=== PATIENT | female | born 1945 | race Caucasian/White ===

== ENCOUNTER 2021-05-03 20:21 | Emergency (ER) | payer MEDICARE, SELFPAY ==
--- NOTE | ~2021-05-03 | CT_ITS ---
EXAMINATION: CT ABDOMEN AND PELVIS WITH CONTRAST CLINICAL INFORMATION: Abdominal pain. Vaginal bleeding. COMPARISON: None TECHNIQUE: Multidetector volumetric images were obtained from the superior aspect of the liver through the pubic symphysis following administration 85 mL of Omnipaque 350 intravenous contrast. Sagittal and coronal reformatted images were obtained on the technologist's workstation. Oral contrast: No This CT examination was performed using dose optimization techniques as appropriate, variously including the following: *Automated exposure control *Adjustment of mA and/or kV according to patient size (this includes techniques or standardized protocols for targeted exams where dose is matched to indication/reason for exam; i.e. extremities or head) *Use of iterative reconstruction technique DLP: 478 mGy-cm FINDINGS: LUNG BASES: The visualized lung bases are unremarkable. LIVER, GALLBLADDER, AND BILIARY TREE: The liver is normal in size, shape, and attenuation. No focal hepatic lesion or biliary ductal dilatation is present. The gallbladder is unremarkable with no evidence of radiopaque gallstones, gallbladder wall thickening, or obvious pericholecystic inflammatory changes. PANCREAS: Unremarkable. SPLEEN: Unremarkable. ADRENAL GLANDS: Unremarkable. KIDNEYS AND URETERS: The kidneys are normal in size, shape, and attenuation. No hydronephrosis or hydroureter. No definite calculi, as there appears to be related excretion of contrast bilaterally in the collecting systems. No perinephric stranding. Fat attenuation lesion at the upper pole of the right kidney measuring 1.4 cm likely represents an angiomyolipoma. BLADDER: Unremarkable. GASTROINTESTINAL TRACT: The small and large bowel are unremarkable. The appendix is unremarkable. ABDOMINAL WALL: No significant hernia is appreciated. LYMPH NODES: Normal. VASCULAR: Normal caliber aorta with mild to moderate atherosclerotic calcification. PELVIC VISCERA: Retroverted uterus. Abnormal endometrium. The endometrial canal is dilated to 1.7 cm . Internal heterogeneous attenuation with nodular enhancing appearance. OSSEOUS STRUCTURES: No acute or suspicious osseous abnormality. Degenerative changes throughout the spine. CT/CT abdomen pelvis w con IMPRESSION: Significant abnormality of the endometrium with abnormal thickening and heterogeneous internal nodular enhancement. This appearance raises concern for malignancy. No lymphadenopathy or peritoneal nodularity. Right renal angiomyolipoma. Fleischner guidelines were followed.
[2021-05-03 20:30] VITALS: BP 182/86; PULSE 93; RESP 20; TEMP 35.8; O2SAT 97; BMI 30.7
[2021-05-03 21:23] LABS: MANUAL DIFF FLAG NO
[2021-05-03 21:24] LABS: Basophils Absolute Auto 0.1 X10*3/uL (0.0-0.2); Basophils Percent Auto 0.6 % (0-2); Eosinophils Absolute Auto 0.1 X10*3/uL (0.0-0.4); Eosinophils Percent Auto 0.5 % (0-4); Hematocrit 49.9 % (37.0-47.0); Hemoglobin 16.3 g/dl (12.0-16.0); Imm Gran Abs Auto 0.04 X10*3/uL (0.00-0.03); Imm Gran Pct Auto 0.3 % (0.0-0.4); Lymphocytes Absolute Auto 1.1 X10*3/uL (1.2-4.9); Mean Corpuscular HGB Conc 32.7 g/dl (31.0-35.0); Mean Corpuscular Hemoglobin 30.1 pg (27.0-33.0); Mean Corpuscular Volume 92.2 fL (80.0-98.0); Mean Platelet Volume 10.8 fL (9.4-12.3); Monocytes Absolute Auto 0.5 X10*3/uL (0.1-1.2); Monocytes Percent Auto 4.2 % (2-11); Neutrophils Absolute Auto 10.5 x10*3/uL (2.0-8.3); Neutrophils Percent Auto 85.4 % (45-73); Platelet Count 266 X10*3/uL (160-400); Red Blood Count 5.41 X10*6/uL (4.20-5.50); Red Cell Distribution Width 12.8 % (11.0-16.0); White Blood Count 12.3 X10*3/uL (4.8-10.8)
[2021-05-03 21:39] LABS: COVID-19 Test Negative (Negative)
[2021-05-03 21:46] LABS: Alanine Aminotransferase 26 U/L (0-31); Albumin Level 4.4 g/dL (3.5-5.0); Alkaline Phosphatase 62 U/L (39-117); Anion Gap 17 (12-20); Aspartate Amino Transferase 28 U/L (5-31); Bilirubin Total 0.6 mg/dL (0.0-1.0); Blood Urea Nitrogen 13 mg/dL (9-16); Carbon Dioxide 26 mmol/L (22-29); Chloride 100 mmol/L (96-108); Creatinine Clr Calc Pharmacy 52.8; Estimated Glomerular Filt Rate > 60; Glucose Random 105 mg/dL (60-115); Potassium 3.4 mmol/L (3.3-5.1); Sodium 140 mmol/L (135-145); Total Protein 8.2 g/dL (6.5-8.0)
[2021-05-03 22:43] LABS: Appearance Urine HAZY; Color Urine YELLOW; Glucose Urine UA NEG (NEG); Leukocyte Esterase Urine NEG (NEG); Nitrite Urine NEG (NEG); Specific Gravity - Urine >= 1.030 (1.005-1.025); UACC Culture Trigger NO; Urine Blood 3+ (NEG); Urine Ketones 5 MG/DL (NEG); Urine Protein TRACE MG/DL (NEG-TRACE)
[2021-05-03 22:53] LABS: Bacteria Urine 1+ /LPF; Calcium Oxalate Crystals Urine 1+ /LPF; Mucus Urine 1+ /LPF; Squamous Epithelial Cell Urine 1+ /LPF
[2021-05-04 02:23] VITALS: BP 179/72; PULSE 90; RESP 16; TEMP 36.8; O2SAT 97
--- NOTE | 2021-05-04 02:31 | PC.NURSE ---
Given new pad at this time. First change since 183
[2021-05-04] MEDS: iohexoL 350 MG/ML 100 ML INFUS..BTL 85 ML IV (03:05)
--- NOTE | 2021-05-04 05:34 | ED.FEMALEGU ---
HPI - Female Genitourinary General Chief complaint: Vaginal Bleeding Stated complaint: Vaginal bleeding Time Seen by Provider: 05/04/21 02:31 Source: patient Mode of arrival: ambulatory Limitations: no limitations History of Present Illness HPI Narrative: 76-year-old female who presents emergency department for evaluation of vaginal bleeding. The patient states that yesterday at around 6:00 p.m. she noted vaginal bleeding. She describes the bleeding as looking like ? period blood ?. She states the she applied and OB pad and since the start of the bleeding she has only had to use three OB pads. She denies any abdominal pain. She denies lightheadedness, dizziness or weakness. She denied fever, chills or night sweats. She has not gained or lost any weight. Related Data Allergies Allergy/AdvReac Type Severity Reaction Status Date / Time Penicillins [PENICILLINS] Allergy Unknown UNKNOWN Unverified 01/03/20 16:03 Review of Systems Review of Systems: Yes all other systems are reviewed and are negative [facility] Past Medical History [facility] Narrative: Past surgical history: Bilateral tubal ligation. Social history: She denies tobacco use. She occasionally drinks alcohol. She denies drug use. Medical History HTN (hypertension) Hypothyroid Social History Social History Advance Directives: No Advance Directives Information Provided: Yes Physical Exam Vital Signs: Vital Signs: Last Vital Signs Temp 98.2 F 05/04/21 02:23 Pulse 90 05/04/21 02:23 Resp 16 05/04/21 02:23 BP 179/72 H 05/04/21 02:23 Pulse Ox 97 05/04/21 02:23 BMI result Body Mass Index 30.7 Const: General: cooperative and no acute distress Orientation/consciousness: oriented to person and oriented to place Limitations: no limitations HENMT: Head: Yes normal to inspection, Yes normocephalic and Yes atraumatic Ears: external ears normal General nose exam: Normal external nose present Face and sinus: Yes normal facial exam Mouth: Normal oral and palatal mucosa present Throat: Yes posterior oropharynx normal Eyes: General: appearance normal, both eyes and all related structures Pupils: Equal, round and reactive pupils present Neck: Neck: Yes normal visual inspection, Yes no lymphadenopathy, Yes trachea midline and Yes supple Chest: Chest palpation & inspection: normal inspection of the chest and normal palpation of entire chest wall Resp: Effort & Inspection: normal respiratory effort and able to speak in complete sentences Auscultation: clear to auscultation bilaterally Cardio: Rate: regular rate Rhythm: regular rhythm Heart sounds: S1 normal heart sound present, S2 normal heart sound present and no murmurs GI: Inspection: Yes normal to inspection Palpation (GI): Soft to palpation, nontender and no guarding Auscultation: normal bowel sounds : General: Yes no CVA tenderness Back/Spine/Pelvis: Back: no CVA tenderness Skin: General skin exam: no rashes or lesions noted Neuro: General: oriented to person and oriented to place Cranial nerves: Yes CN's II-XII intact bilaterally and Yes Equal, round and reactive pupils present Cognition (Neuro): normal cognition Motor exam (neuro): 5/5 motor strength present throughout Extrem: General: Yes normal to inspection Psych: Appearance: grossly normal Speech and movement: Normal speech and movement present Affect: normal affect Attitude: cooperative Thought process: Normal thought process present Thought content: Normal thought content present Course Course Course Narrative: 76-year-old female who presents emergency department for evaluation of sudden onset of vaginal bleeding that occurred yesterday at 6:00 p.m.. The patient is only used three OB pad since the onset of the bleeding. She denied any abdominal pain, lightheadedness dizziness. Vital signs were normal. Physical examination was unremarkable. The patient's laboratory evaluation revealed a normal H&H of [address] scan of the abdomen pelvis with IV contrast was interpreted by the radiologist as follows:Significant abnormality of the endometrium with abnormal thickening and heterogeneous internal nodular enhancement. This appearance raises concern for malignancy. No lymphadenopathy or peritoneal nodularity.? Right renal angiomyolipoma. I did discuss this finding with the patient and the need to follow-up with gynecology. Patient states she does not have a accounting auditor therefore she will be referred to our accounting auditor. She was advised to contact the office and make a follow-up appointment within 1-2 weeks. She was given printed instructions on dysfunctional uterine bleeding and discharged home. MDM - Female Genitourinary Lab Data Result diagrams: 05/03/21 20:56 05/03/21 20:56 Labs: Lab Results 05/03/21 05/03/21 05/03/21 Range/Units 20:56 20:56 20:56 WBC 12.3 H (4.8-10.8) X10*3/uL RBC 5.41 (4.20-5.50) X10*6/uL Hgb 16.3 H (12.0-16.0) g/dl Hct 49.9 H (37.0-47.0) % MCV 92.2 (80.0-98.0) fL MCH 30.1 (27.0-33.0) pg MCHC 32.7 (31.0-35.0) g/dl RDW 12.8 (11.0-16.0) % Plt Count 266 (160-400) X10*3/uL MPV 10.8 (9.4-12.3) fL Immature Gran % (Auto) 0.3 (0.0-0.4) % Neut % (Auto) 85.4 H (45-73) % Lymph % (Auto) 9.0 L (20-40) % [place] % (Auto) 4.2 (2-11) % Eos % (Auto) 0.5 (0-4) % Baso % (Auto) 0.6 (0-2) % Lymph # (Auto) 1.1 L (1.2-4.9) X10*3/uL [place] # (Auto) 0.5 (0.1-1.2) X10*3/uL Eos # (Auto) 0.1 (0.0-0.4) X10*3/uL Baso # (Auto) 0.1 (0.0-0.2) X10*3/uL Abs Immat Gran (auto) 0.04 H (0.00-0.03) X10*3/uL Absolute Neuts (auto) 10.5 H (2.0-8.3) x10*3/uL Absolute Nucleated RBC 0.000 (0.0-0.012) X10*3/uL Nucleated RBC % (auto) 0.0 (0.0-0.2) /100WBC Sodium 140 (135-145) mmol/L Potassium 3.4 (3.3-5.1) mmol/L Chloride 100 (96-108) mmol/L Carbon Dioxide 26 (22-29) mmol/L Anion Gap 17 (12-20) BUN 13 (9-16) mg/dL Creatinine 0.70 (0.5-1.4) mg/dL Estim Creat Clear Calc 52.8 Estimated GFR > 60 Random Glucose 105 (60-115) mg/dL Calcium 10.0 (8.4-10.2) mg/dL Total Bilirubin 0.6 (0.0-1.0) mg/dL AST 28 (5-31) U/L ALT 26 (0-31) U/L Alkaline Phosphatase 62 (39-117) U/L Total Protein 8.2 H (6.5-8.0) g/dL Albumin 4.4 (3.5-5.0) g/dL Urine Color Urine Appearance Urine pH (5.0-8.0) Ur Specific [place] (1.005-1.025) Urine Protein (NEG-TRACE) MG/DL Urine Glucose (UA) (NEG) MG/DL Urine Ketones (NEG) MG/DL Urine Blood (NEG) Urine Nitrite (NEG) Ur Leukocyte Esterase (NEG) Urine RBC (0) /HPF Urine WBC (0-4) /HPF Ur Squamous Epith Cells /LPF Calcium Oxalate Crystal /LPF Urine Bacteria /LPF Urine Mucus /LPF COVID-19 ([facility]) Negative (Negative) COVID-19 Clin Com See Note 05/03/21 Range/Units 21:23 WBC (4.8-10.8) X10*3/uL RBC (4.20-5.50) X10*6/uL Hgb (12.0-16.0) g/dl Hct (37.0-47.0) % MCV (80.0-98.0) fL MCH (27.0-33.0) pg MCHC (31.0-35.0) g/dl RDW (11.0-16.0) % Plt Count (160-400) X10*3/uL MPV (9.4-12.3) fL Immature Gran % (Auto) (0.0-0.4) % Neut % (Auto) (45-73) % Lymph % (Auto) (20-40) % [place] % (Auto) (2-11) % Eos % (Auto) (0-4) % Baso % (Auto) (0-2) % Lymph # (Auto) (1.2-4.9) X10*3/uL [place] # (Auto) (0.1-1.2) X10*3/uL Eos # (Auto) (0.0-0.4) X10*3/uL Baso # (Auto) (0.0-0.2) X10*3/uL Abs Immat Gran (auto) (0.00-0.03) X10*3/uL Absolute Neuts (auto) (2.0-8.3) x10*3/uL Absolute Nucleated RBC (0.0-0.012) X10*3/uL Nucleated RBC % (auto) (0.0-0.2) /100WBC Sodium (135-145) mmol/L Potassium (3.3-5.1) mmol/L Chloride (96-108) mmol/L Carbon Dioxide (22-29) mmol/L Anion Gap (12-20) BUN (9-16) mg/dL Creatinine (0.5-1.4) mg/dL Estim Creat Clear Calc Estimated GFR Random Glucose (60-115) mg/dL Calcium (8.4-10.2) mg/dL Total Bilirubin (0.0-1.0) mg/dL AST (5-31) U/L ALT (0-31) U/L Alkaline Phosphatase (39-117) U/L Total Protein (6.5-8.0) g/dL Albumin (3.5-5.0) g/dL Urine Color YELLOW Urine Appearance HAZY Urine pH 6.0 (5.0-8.0) Ur Specific [place] >= 1.030 H (1.005-1.025) Urine Protein TRACE (NEG-TRACE) MG/DL Urine Glucose (UA) NEG (NEG) MG/DL Urine Ketones 5 (NEG) MG/DL Urine Blood 3+ H (NEG) Urine Nitrite NEG (NEG) Ur Leukocyte Esterase NEG (NEG) Urine RBC 76-150 H (0) /HPF Urine WBC 1-4 (0-4) /HPF Ur Squamous Epith Cells 1+ /LPF Calcium Oxalate Crystal 1+ /LPF Urine Bacteria 1+ /LPF Urine Mucus 1+ /LPF COVID-19 ([facility]) (Negative) COVID-19 Clin Com Discharge Plan Discharge Clinical Impression: Dysfunctional uterine bleeding, Thickened endometrium Patient Disposition: Home, Self-Care Instructions: Dysfunctional Uterine Bleeding (ED) Additional Instructions: Your red blood cell count was normal, you do not have anemia which is reassuring. The rest of your blood work was normal. The CT scan of your abdomen pelvis with IV contrast revealed that you have endometrial thickening (the endometrium is the inside of the uterus). This can sometimes be caused by cancer of the uterus. You will need to follow-up with our accounting auditor to determine what other tests you will need to further figure out the cause of your vaginal bleeding. Continue to use OB pad. If your soaking through more than 1 or 2 per hour, if he feel lightheaded dizzy or if your symptoms get worse in any other way you should follow-up with a accounting auditor return to the emergency department. Call the accounting auditor's office tomorrow to try to make a follow-up appointment within 1-2 weeks. Let the office know that you were here in the emergency department and that we are concerned that you might have endometrial cancer causing her bleeding. Please return to the emergency department if your symptoms get worse or if you develop any symptoms that are concerning to you. Referrals: Moncho Munson MD [Physician] - 1 week
== END 2021-05-04 06:50 | disposition home or self-care (01) ==
PROVIDERS: Emergency Provider Emergency Medicine Emergency Medical Services; PCP Advanced Practice Midwife
DX: N93.9 Abnormal uterine and vaginal bleeding, unspecified (principal); R93.89 Abnormal findings on diagnostic imaging of other specified body structures; Z20.822 Contact with and (suspected) exposure to COVID-19; I10 Essential (primary) hypertension
CPT/HCPCS: 36415; 74177; 80053; 81001; 85025; 87635; 99284; Q9967

== ENCOUNTER 2022-01-09 21:18 | Emergency (ER) | payer MEDICARE, SELFPAY ==
[2022-01-09 21:53] VITALS: BP 168/89; PULSE 88; RESP 18; TEMP 36.3; O2SAT 99; BMI 27.3
[2022-01-10 01:41] VITALS: BP 177/83; PULSE 80; RESP 16; TEMP 36.3; O2SAT 98
[2022-01-10 01:56] LABS: MANUAL DIFF FLAG NO
[2022-01-10 01:57] LABS: Basophils Absolute Auto 0.1 X10*3/uL (0.0-0.2); Basophils Percent Auto 0.9 % (0-2); Eosinophils Absolute Auto 0.1 X10*3/uL (0.0-0.4); Hematocrit 48.7 % (37.0-47.0); Imm Gran Abs Auto 0.02 X10*3/uL (0.00-0.03); Imm Gran Pct Auto 0.2 % (0.0-0.4); Lymphocytes Absolute Auto 2.3 X10*3/uL (1.2-4.9); Lymphocytes Percent Auto 26.3 % (20-40); Mean Corpuscular HGB Conc 32.9 g/dl (31.0-35.0); Mean Corpuscular Hemoglobin 29.7 pg (27.0-33.0); Mean Corpuscular Volume 90.4 fL (80.0-98.0); Mean Platelet Volume 9.9 fL (9.4-12.3); Monocytes Absolute Auto 0.7 X10*3/uL (0.1-1.2); Monocytes Percent Auto 8.3 % (2-11); Neutrophils Absolute Auto 5.6 x10*3/uL (2.0-8.3); Neutrophils Percent Auto 63.3 % (45-73); Platelet Count 347 X10*3/uL (160-400); Red Blood Count 5.39 X10*6/uL (4.20-5.50); Red Cell Distribution Width 13.2 % (11.0-16.0); White Blood Count 8.9 X10*3/uL (4.8-10.8)
[2022-01-10 02:17] LABS: Alanine Aminotransferase 21 U/L (0-31); Albumin Level 4.5 g/dL (3.5-5.0); Alkaline Phosphatase 68 U/L (39-117); Anion Gap 18 (12-20); Aspartate Amino Transferase 20 U/L (5-31); Bilirubin Total 0.8 mg/dL (0.0-1.0); Blood Urea Nitrogen 10 mg/dL (9-16); Calcium 10.1 mg/dL (8.4-10.2); Carbon Dioxide 27 mmol/L (22-29); Chloride 102 mmol/L (96-108); Creatinine Clr Calc Pharmacy 55.3; Estimated Glomerular Filt Rate > 60; Glucose Random 115 mg/dL (60-115); Potassium 4.1 mmol/L (3.3-5.1); Sodium 143 mmol/L (135-145); Total Protein 7.7 g/dL (6.5-8.0)
[2022-01-10 02:19] LABS: Appearance Urine Clear; Color Urine Yellow; Glucose Urine UA Negative (Negative); Leukocyte Esterase Urine Small (1+) (Negative); Nitrite Urine Negative (Negative); UMIC TRIGGER UACC YES; Urine Blood Negative (Negative); Urine Ketones 15 mg/dL (Negative); Urine Protein Negative (Neg-Trace)
[2022-01-10 02:31] LABS: Bacteria Urine None Seen (None Seen); Hyaline Casts Urine 0-2 /LPF (0-2); RBC Urine 0-2 /HPF (0-2); Squamous Epithelial Cell Urine 0-2 /HPF (0-2); UACC Culture Trigger YES; WBC Urine 0-5 /HPF (0-5)
== END 2022-01-10 06:47 | disposition left against medical advice (07) ==
PROVIDERS: Emergency Provider Emergency Medicine; PCP Advanced Practice Midwife
DX: R10.12 Left upper quadrant pain (principal); I10 Essential (primary) hypertension
CPT/HCPCS: 36415; 80053; 81001; 85025; 87086; 99282; 99283

== ENCOUNTER 2025-03-09 04:57 | Emergency (ER) | payer MEDICARE, SELFPAY ==
--- OUTSIDE RECORDS SUMMARY | 2025-03-08 09:00 | XMS_ITS | Encounter Summary ---
Author Organization [facility] Address [address] [place] [address] Care Team Providers Care Chief Embalmer Name Role Phone Ceci Martin MD Primary Care Provider Reason for Visit * Reason Comments Diarrhea Encounter Details Date Type Department Care Team (Late st Contact Info) Description 03/08/2025 9:00 AM EST Office Visit Adult Medicine [address] [phone] Uyen Bush PA [address] [place], [place] Diarrhea, unspecified type (Primary Dx) Social History Tobacco Use Types Packs/Day Years Used Date Smoking Tobacco: Former Cigarettes 0.3 14.2 1 04/23/1957 - 04/18/1972 Smokeless Tobacco: Never Tobacco Cessation:Counseling Given: Not Answered Alcohol Use Standard Drinks/Week Comments Yes 0 (1 standard drink = 0.6 oz pur e alcohol) Housing Instability Answer Date Recorde d Are you worried that in the next 2 months you may not have stable housing? No 02/15/2025 Food Access & Nutrition Answer Date Rec orded Do you have access to a vari ety of food including fruits and vegetables? Yes 02/15/2025 Access to Healthcare Answer Date Record ed Within the last 3 months, vahe romero many times did you visit the emergency department for your medical care? 0 02/15/2025 Health Literacy Answer Date Recorded How often do you need to hav e someone help you when you read instructions, pamphlets, or other written material from your doctor or pharmacy? Never 02/15/2025 Caregiver: How often do you need to have someone help you when you read instructions, pamphlets, or other written material from your doctor or pharmacy? Not on file 02/15/2025 Financial Risk Answer Date Recorded How hard is it for you to pa y for the very basics like food, housing, medical care, and air conditioning / heating? Not very hard 02/15/2025 Transportation Answer Date Recorded Has the lack of transportati on kept you from meetings, work, or from getting things needed for daily living? No Has the lack of transportati on kept you from medical appointments or from getting medications? No 02/15/2025 Social Isolation Answer Date Recorded How often do you feel lonely or isolated from th ose around you? Never 02/15/2025 Food Risk Answer Date Recorded Within the past 12 months we worried whether our food would run out before we got money to buy more. Never true 02/15/2025 Within the past 12 months th e food we bought just didn't last and we didn't have money to get more. Never true 02/15/2025 Dependent Care Answer Date Recorded Do you need help finding or paying for care for your loved ones. For example, child support case officer or elderly care for an older adult? No 02/15/2025 Education Answer Date Recorded Do you think completing more education or training, like finishing a GED, going to college, or learning a trade, would be helpful for you? No 02/15/2025 Employment and Income Answer Date Recor ded During the last four weeks, have you been actively looking for work? No 02/15/2025 Living Situation Answer Date Recorded What is your living situation? Unrecognized valu e 02/15/2025 Comments No Sex and Gender Information Value Date Recorded Sex Assigned at Not on file Legal Sex Female 3:40 PM EST Gender Identity Not on file Sexual Orientation Not on file documented as of this encounter Last Filed Vital Signs Vital Sign Reading Time Taken Comments Blood Pressure 118/60 03/08/2025 8:37 AM EST Pulse 96 03/08/2025 8:37 AM EST Temperature 36.4 C (97.6 F) 03/08/2025 8:37 AM EST Respiratory Rate 16 03/08/2025 8:37 AM EST Oxygen Saturation 97% 03/08/2025 8:37 AM EST Inhaled Oxygen Concentration - - Weight 59.9 kg (132 lb) 03/08/2025 8:37 AM EST Height 152.4 cm (5') 03/08/2025 8:37 AM EST Body Mass Index 25.78 03/08/2025 8:37 AM EST documented in this encounter Patient Instructions * Attachments The following attachments cannot be sent through Care Everywhere. * Diarrhea (Albanian) documented in this encounter Progress Notes * CLAYTON Silva - 03/08/2025 9:00 AM EST CHIEF COMPLAINT: Diarrhea IDENTIFIER: Blanka Lui is a 80 y.o. old female. HPI: 80-year-old female with memory impairment presenting to office (with her ) for evaluation. Vast majority of history is obtained from . Has reports patient began experiencing episodes of loose stool about a week ago; states he spoke with triage nurse and was referred to urgent care, but [facility] urgent care facility does not deal withthat there. He states he originally started BRAT diet, Imodium, Pepto-Bismol, but has since discontinued these and reports patient resumed normal diet. He states she wakes at about 3AM with fecal urgency and she describes abdominal cramping with urgency, usually has about 2 more episodes at 4 and 5 AM which does not continue throughout the day. Has been states she has not had any medications in the past 2 days for symptoms. Denies fever, shaking chills, overt abdominal pain, nausea, vomiting, blood per rectum, or melena. Denies known ill contacts, drinking from unsafe water sources, international travel, recent antibiotic use. Patient reports history of similar symptoms 50 years ago but states she does not recall diagnosis or treatment. 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 Osteopenia 01/29/2013 GERD (gastroesophageal reflux disease) 07/05/2012 Allergic rhinitis 08/25/2010 Diffuse cystic mastopathy 09/09/2005 Hypothyroidism 09/09/2005 Overweight (BMI 25.0-29.9) 09/09/2005 Pure hypercholesterolemia 09/09/2005 Surgical History[1] SOCIAL HISTORY: Social History Tobacco Use Smoking status: Former Current packs/day: 0.00 Average packs/day: 0.3 packs/day for 14.2 years (4.2 ttl pk-yrs) Types: Cigarettes Start date: 1958 Quit date: 04/18/1972 Years since quittin.9 Smokeless tobacco: Never Substance Use Topics Alcohol use: Yes FAMILY HISTORY: Family History[2] Family Status Relation Name Status Mother at age 95 Father at age 72 Sister (Not Specified) Brother at age 49 Brother (Not Specified) Neg Hx (Not Specified) MGM [place] MGF UK PGM [place] PGF [place] No partnership data on file MEDICATIONS DISCONTINUED/REORDERED: There are no discontinued medications. ACTIVE MEDICATIONS: Medications Taking[3] ALLERGIES: Allergies[4] PHYSICAL EXAM: Visit Vitals BP 118/60 Pulse 96 Temp 36.4 ??C (97.6 ??F) (Temporal) Resp 16 Ht 1.524 m (60 ) Wt 59.9 kg (132 lb) SpO2 97% BMI 25.78 kg/m?? OB Status Hysterectomy Smoking Status Former BSA 1.56 m?? Wt Readings from Last 5 Encounters: 03/08/25 59.9 kg (132 lb) 02/15/25 61.2 kg (135 lb) 07/30/24 60.4 kg (133 lb 1.6 oz) 04/03/24 63 kg (139 lb) 02/14/24 62.3 kg (137 lb 6.4 oz) BMI is greater than 25.0 (above the normal range) - see Plan APPEARANCE: Alert and in no acute distress EYES: Sclerae anicteric HEART: RRR with normal S1 and S2, no murmurs, no gallops LUNG: Bilateral lung hu clear to auscultation throughout ABDOMEN: Soft, nontender, tympanitic to percussion, normoactive bowel sounds noted throughout all four quadrants, no hepatosplenomegaly, palpable masses, or bruits noted upon auscultation. LABS: Orders Placed This Encounter Procedures Ova and parasite examination Giardia antigen Clostridium difficile toxin Sedimentation rate Comprehensive metabolic panel CBC and differential IMAGING: None IMPRESSION: 1. Diarrhea, unspecified type PLAN: Ordered labs and stool testing as noted above; abdominal exam is reassuring. Advised to begin dailyprobiotic (or Activa yogurt) and resume BRAT diet. We did discuss signs and symptoms which needs miguel reevaluated including: fever, shaking chills, abdominal pain, vomiting, blood per rectum, or melena. Follow-up as needed. Medication and lab orders: Orders Placed This Encounter Procedures Ova and parasite examination Giardia antigen Clostridium difficile toxin Sedimentation rate Comprehensive metabolic panel CBC and differential Other orders: None CLAYTON Silva on 03/08/2025 at 9:04 AM EST [id number] is applicable to this visit as the primary care provider (PCP) office dealing with list the conditions noted/billed above are complex requiring extensive management/work up associated with longitudinal care of this patient. This patient???s serious/complex conditions may also require several consultants needing management/coordination through PCP office. This chart was generated by the [employer] EMR system and [employer] speech recognition software and may contain inherent errors or omissions not intended by the user. Grammatical errors, random word insertions, deletions, pronoun errors and incomplete sentences are occasional consequences of this technologydue to software limitations. Not all errors are caught or corrected. If there are questions or concerns about the content of this note or information contained within the body of this dictation they should be addressed directly with the author for clarification. [1] Past Surgical History: Procedure Laterality Date BREAST SURGERY : rt lumpectomy neg yrs ago COLONOSCOPY 05/2005 : Normal COLONOSCOPY 02/11/2021 diverticulosis COLONOSCOPY W/ POLYPECTOMY 04/29/2016 adenomas; repeat in 3 yrs ESOPHAGOGASTRODUODENOSCOPY 10/23/2012 normal ESOPHAGOGASTRODUODENOSCOPY 04/06/2017 : normal HYSTERECTOMY OTHER SURGICAL HISTORY 05/2003 ORIF fibula fracture TONSILLECTOMY TUBAL LIGATION [2] Family History Problem Relation Name Age of Onset Heart failure Mother ; CABG, dementia Heart failure Father ; OR Hyperlipidemia Sister Heart attack Brother Heart failure Brother hypertension Ovarian cancer Neg Hx Breast cancer Neg Hx Colon cancer Neg Hx Uterine cancer Neg Hx [3] Outpatient Medications Marked as Taking for the 03/08/25 encounter (Office Visit) with CLAYTON Silva Medication Sig Dispense Refill aspirin 81 mg EC tablet 1 TABLET DAILY calcium carbonate/vitamin D3 (CALCIUM 500 + D ORAL) Take by mouth 1 (one) time each day. chlorthalidone (HYGROTON) 25 mg tablet TAKE 1 TABLET BY MOUTH EVERY DAY 90 tablet 1 cholecalciferol (VITAMIN D-3) 50 mcg (2,000 unit) tablet Take 1 tablet (2,000 Units total) by mouth1 (one) time each day. 90 tablet 1 levothyroxine (SYNTHROID, LEVOTHROID) 88 mcg tablet TAKE 1 TABLET (88 MCG TOTAL) BY MOUTH EVERY DAYBEFORE BREAKFAST 90 tablet 0 lisinopriL (PRINIVIL,ZESTRIL) 20 mg tablet TAKE 1 TABLET BY MOUTH EVERY DAY 90 tablet 1 loperamide (IMODIUM A-D) 2 mg tablet Take 1 tablet (2 mg total) by mouth 4 (four) times a day if needed for diarrhea. multivitamin (MULTIPLE VITAMINS ORAL) 1 tab qd simvastatin (ZOCOR) 40 mg tablet TAKE 1 TABLET BY MOUTH EVERYDAY AT BEDTIME 90 tablet 1 [4] Allergies Allergen Reactions Penicillins Swelling documented in this encounter Plan of Treatment Upcoming Encounters Date Type Department Care Team (Late st Contact Info) Description 08/14/2025 8:45 AM EDT Office Visit Adult Medicine [address] [phone] Ceci Martin MD [address] [place] [address] Scheduled Orders Name Type Priority Associated Diagnoses Orde r Schedule Ova and parasite examination Microbiology Routine Diarrhea, unspecified type 3 Occurrences starting 03/08/2025 until 04/07/2025 Giardia antigen Microbiology Routine Diarrhea, unspecified type 1 Occurrences starting 03/08/2025 until 09/05/2025 Clostridium difficile toxin Microbiology Routine Diarrhea, unspecified type 1 Occurrences starting 03/08/2025 until 09/05/2025 documented as of this encounter Results * (ABNORMAL) Comprehensive metabolic panel (03/08/2025 9:28 AM EST) Sodium 137 133 - 145 mmol/L 03/08/2025 1:19 PM [facility] Potassium 3.7 3.5 - 5.5 mmol/L 03/08/2025 1:19 PM [facility] Chloride 97 96 - 110 mmol/L 03/08/2025 1:19 PM [facility] CO2 30 21 - 32 mmol/L 03/08/2025 1:19 PM [facility] Anion Gap 10 3 - 11 03/08/2025 1:19 PM [facility] Glucose 149(H) 70 - 100 mg/dL 03/08/2025 1:19 PM [facility] BUN 22 5 - 25 mg/dL 03/08/2025 1:19 PM [facility] Creatinine 1.27(H) 0.50 - 1.10 mg/dL 03/08/2025 1:19 PM [facility] eGFR 43(L) >=60 mL/min/1. 73m2 03/08/2025 1:19 PM [facility] Comment:Calculation based on the Chronic Kidney Disease Epidemiology Collaboration (CKD-EPI) equation refit without adjustment for race. BUN/Creatinine Ratio 17.3 03/08/2025 1:19 PM [facility] Calcium 8.7 8.5 - 10.5 mg/dL 03/08/2025 1:19 PM [facility] AST (SGOT) 14 10 - 42 unit/L 03/08/2025 1:19 PM [facility] ALT (SGPT) 14 10 - 60 unit/L 03/08/2025 1:19 PM [facility] Alkaline Phosphatase 67 42 - 121 unit/L 03/08/2025 1:19 PM [facility] Total Protein 7.0 6.0 - 8.0 g/dL 03/08/2025 1:19 PM [facility] Albumin 3.9 3.2 - 5.0 g/dL 03/08/2025 1:19 PM [facility] Total Bilirubin 0.5 0.0 - 1.4 mg/dL 03/08/2025 1:19 PM [facility] Blood Venous blood specimen / Unknown Venipuncture / Unknown 03/08/2025 9:28 AM EST 03/08/2025 9:28 AM EST us Uyen ARNOLD LAB BLOOD ORDERABLES Final Re sult [facility] [address] [place] [address], [place] [phone] * Sedimentation rate (03/08/2025 9:28 AM EST) Sed Rate 14 0 - 30 mm/hr LAB HEMETOLOGY METHOD 03/08/2025 12:24 PM [facility] Blood Venous blood specimen / Unknown Venipuncture / Unknown 03/08/2025 9:28 AM EST 03/08/2025 9:28 AM EST us Uyen ARNOLD LAB BLOOD ORDERABLES Final Re sult [facility] [address] [place] [address], [place] [phone] documented in this encounter Visit Diagnoses Diagnosis Diarrhea, unspecified type- Primary documented in this encounter Historical Medications * This list may reflect changes made after this encounter. loperamide (IMODIUM A-D) 2 mg tablet Take 1 tablet (2 mg total) by mouth 4 (four) times a day if needed for diarrhea. calcium carbonate/vitamin D3 (CALCIUM 500 + D ORAL) Take by mouth 1 (one) time each day. added in this encounter Additional Health Concerns Assessment Noted Time PHQ-9 Depression Total Score: 0 02/16/20 9:44 AM EDT A fall risk assessment has been complete d for the patient 02/15/2025 10:01 AM EDT documented as of this encounter Care Teams Chief Embalmer Relationship Specialty Start Date End Date Ceci Martin MD [address] [place] [address] PCP - General Internal Medicine 06/12/20 documented as of this encounter
--- OUTSIDE RECORDS SUMMARY | 2025-03-08 09:30 | XMS_ITS | Encounter Summary ---
Author Organization [facility] [place] [address] Care Team Providers Care Material Cutter Name Role Phone Ceci Martin MD Primary Care Provider [phone] Encounter Details Date Type Department Care Team (Late st Contact Info) Description 03/08/2025 9:30 AM EST Lab Draw Station - [address] [phone] Diarrhea, unspecified type Social History Tobacco Use Types Packs/Day Years Used Date Smoking Tobacco: Former Cigarettes 0.3 14.2 1 04/23/1957 - 04/18/1972 Smokeless Tobacco: Never Alcohol Use Standard Drinks/Week Comments Yes 0 [...] Record ed Within the last 3 months, ho w many times did you visit the emergency [...] for your loved ones. For example, child watch attendant or elderly care for an older adult? [...] on file documented as of this encounter Plan of Treatment Upcoming Encounters Date Type Department Care Team (Late st Contact Info) Description 08/14/2025 8:45 AM EDT Office Visit Adult Medicine [facility] [address] [place], [place] [phone] Ceci Martin MD [address] [place], [place] [phone] (work) documented as of this encounter Procedures Procedure Name Priority Date/Time Associated Diagnosis Comments CBC WITH AUTO DIFFERENTIAL Routine 03/08/2025 9:28 AM EST Diarrhea, unspecified type SEDIMENTATION RATE Routine 03/08/2025 9: 28 AM EST Diarrhea, unspecified type CBC AND DIFFERENTIAL Routine 03/08/2025 9:28 AM EST Diarrhea, unspecified type COMPREHENSIVE METABOLIC PANEL Routine 03/08/2025 9:28 AM EST Diarrhea, unspecified type documented in this encounter Results * (ABNORMAL) CBC auto differential (03/08/2025 9:28 AM EST) WBC 10.3 4.8 - 10.8 K/mcL LAB HEMETOLOGY METHOD 03/08/2025 12:19 PM [facility] RBC 4.70 3.80 - 4.80 M/mcL LAB HEMETOLOGY METHOD 03/08/2025 12:19 PM [facility] Hemoglobin 14.2 11.5 - 16.0 g/dL LAB HEMETOLOGY METHOD 03/08/2025 12:19 PM [facility] Hematocrit 43.2 35.0 - 47.0 % LAB HEMETOLOGY METHOD 03/08/2025 12:19 PM [facility] MCV 92.3 79.0 - 98.0 FL LAB HEMETOLOGY METHOD 03/08/2025 12:19 PM [facility] MCH 30.3 27.0 - 32.0 pcg LAB HEMETOLOGY METHOD 03/08/2025 12:19 PM [facility] MCHC 32.9 32.0 - 37.0 g/dL LAB HEMETOLOGY METHOD 03/08/2025 12:19 PM [facility] RDW 12.3 11.0 - 15.0 % LAB HEMETOLOGY METHOD 03/08/2025 12:19 PM [facility] Platelets 413(H) 130 - 400 K/mcL LAB HEMETOLOGY METHOD 03/08/2025 12:19 PM [facility] MPV 9.9 7.0 - 11.0 FL LAB HEMETOLOGY METHOD 03/08/2025 12:19 PM [facility] NRBC 0.0 <1.0 % LAB HEMETOLOGY METHOD 03/08/2025 12:19 PM [facility] NRBC Absolute 0.00 <0.10 K/mcL LAB HEMETOLOGY METHOD 03/08/2025 12:19 PM [facility] Neutrophils Relative 86.3 % LAB HEMETOLOGY METHOD 03/08/2025 12:19 PM [facility] Lymphocytes Relative 7.2 % LAB HEMETOLOGY METHOD 03/08/2025 12:19 PM [facility] Monocytes Relative 5.0 % LAB HEMETOLOGY METHOD 03/08/2025 12:19 PM [facility] Eosinophils Relative 0.3 % LAB HEMETOLOGY METHOD 03/08/2025 12:19 PM [facility] Basophils Relative 0.9 % LAB HEMETOLOGY METHOD 03/08/2025 12:19 PM [facility] Immature Granulocytes Relative 0.3 % LAB HEMETOLOGY METHOD 03/08/2025 12:19 PM [facility] Neutrophils Absolute 8.85(H) 1.50 - 7.00 K/mcL LAB HEMETOLOGY METHOD 03/08/2025 12:19 PM [facility] Lymphocytes Absolute 0.74(L) 1.00 - 5.00 K/mcL LAB HEMETOLOGY METHOD 03/08/2025 12:19 PM [facility] Monocytes Absolute 0.51 0.20 - 1.00 K/mcL LAB HEMETOLOGY METHOD 03/08/2025 12:19 PM EST [facility] Eosinophils Absolute 0.03 0.00 - 0.50 K/[facility] HEMETOLOGY METHOD 03/08/2025 12:19 PM EST [facility] Basophils Absolute 0.09 0.00 - 0.20 K/[facility] HEMETOLOGY METHOD 03/08/2025 12:19 PM EST [facility] Immature Granulocytes Absolute 0.03 0.00 - 0.03 K/[facility] HEMETOLOGY METHOD 03/08/2025 12:19 PM EST [facility] Blood Venous blood specimen / Unknown Venipuncture / Unknown 03/08/2025 9:28 AM EST 03/08/2025 9:28 AM EST us Uyen ARNOLD LAB BLOOD ORDERABLES Final Re sult Performing Organization Address City/[facility]/ZIP Co de Phone Number [facility] [address] [place] [address], [place] [phone] * Sedimentation rate (03/08/2025 9:28 AM EST) Sed Rate 14 0 - 30 mm/hr LAB HEMETOLOGY METHOD 03/08/2025 12:24 PM EST [facility] Blood Venous blood specimen / Unknown Venipuncture / Unknown 03/08/2025 9:28 AM EST 03/08/2025 9:28 AM EST us Uyen ARNOLD LAB BLOOD ORDERABLES Final Re sult [facility] [address] [place] [address], [place] [phone] * (ABNORMAL) Comprehensive metabolic panel (03/08/2025 9:28 AM EST) Sodium 137 133 - 145 mmol/L 03/08/2025 1:19 PM EST [facility] Potassium 3.7 3.5 - 5.5 mmol/L 03/08/2025 1:19 PM [facility] Chloride 97 96 - 110 mmol/L 03/08/2025 1:19 PM [facility] CO2 30 21 - 32 mmol/L 03/08/2025 1:19 PM [facility] Anion Gap 10 3 - 11 03/08/2025 1:19 PM [facility] Glucose 149(H) 70 - 100 mg/dL 03/08/2025 1:19 PM [facility] BUN 22 5 - 25 mg/dL 03/08/2025 1:19 PM [facility] Creatinine 1.27(H) 0.50 - 1.10 mg/dL 03/08/2025 1:19 PM [facility] eGFR 43(L) >=60 mL/min/1. 73m2 03/08/2025 1:19 PM [facility] Comment:Calculation based on the Chronic Kidney Disease Epidemiology Collaboration (CKD-EPI) equation refit without adjustment for race. BUN/Creatinine Ratio 17.3 03/08/2025 1:19 PM [facility] Calcium 8.7 8.5 - 10.5 mg/dL 03/08/2025 1:19 PM [facility] AST (SGOT) 14 10 - 42 unit/L 03/08/2025 1:19 PM [facility] ALT (SGPT) 14 10 - 60 unit/L 03/08/2025 1:19 PM [facility] Alkaline Phosphatase 67 42 - 121 unit/L 03/08/2025 1:19 PM [facility] Total Protein 7.0 6.0 - 8.0 g/dL 03/08/2025 1:19 PM [facility] Albumin 3.9 3.2 - 5.0 g/dL 03/08/2025 1:19 PM EST [facility] Total Bilirubin 0.5 0.0 - 1.4 mg/dL 03/08/2025 1:19 PM EST [facility] Blood Venous blood specimen / Unknown Venipuncture / Unknown 03/08/2025 9:28 AM EST 03/08/2025 9:28 AM EST us Uyen ARNOLD LAB BLOOD ORDERABLES Final Re sult [facility] [address] [place] [address], documented in this encounter Visit Diagnoses Diagnosis Diarrhea, unspecified type documented in this encounter Additional Health Concerns Assessment Noted Time PHQ-9 Depression Total Score: 0 02/16/20 9:44 AM EDT A fall risk assessment has been complete d for the patient 02/15/2025 10:01 AM EDT documented as of this encounter Care Teams Material Cutter Relationship Specialty Start Date End Date Ceci Martin MD [address] [place] [address] PCP - General Internal Medicine 06/12/20 documented as of this encounter
[2025-03-09 05:05] VITALS: BP 109/55; PULSE 65; RESP 14; TEMP 36.7; O2SAT 95; BMI 25.6
--- OUTSIDE RECORDS SUMMARY | 2025-03-09 05:23 | XMS_ITS | Encounter Summary ---
Author Organization [facility] [place] [address] Care Team Providers Care Chief Bank Examiner Name Role Phone Ceci Martin MD Primary Care Provider [phone] Encounter Details Date Type Department Care Team (Late st Contact Info) Description 02/19/2025 Results Follow-Up Adult Medicine [address] [phone] Uyen Bush PA [address] [place], [place] Social History Tobacco Use Types Packs/Day Years [...] for your loved ones. For example, child care nurse or elderly care for an older adult? [...] 8:45 AM EDT Office Visit Adult Medicine [address] [phone] Ceci Martin MD [address] [place], [place] documented as of this encounter Visit Diagnoses Not on filedocumented in this encounter Additional Health Concerns Assessment Noted Time PHQ-9 Depression Total Score: 0 02/16/20 9:44 AM EDT A fall risk assessment has been complete d for the patient 02/15/2025 10:01 AM EDT documented as of this encounter Care Teams Chief Bank Examiner Relationship Specialty Start Date End Date Ceci Martin MD [address], [place] PCP - General Internal Medicine 06/12/20 documented as of this encounter
--- OUTSIDE RECORDS SUMMARY | 2025-03-09 05:23 | XMS_ITS | Encounter Summary ---
Author Organization [facility] [place] [address] Care Team Providers Care Echocardiologist Name Role Phone Ceci Martin MD Primary Care Provider [phone] Encounter Details Date Type Department Care Team (Late st Contact Info) Description 03/08/2025 Results Follow-Up Adult Medicine [address] [phone] Uyen Bush PA [address], [place] Social History Tobacco Use Types Packs/Day [...] for your loved ones. For example, child welfare director or elderly care for an older adult? [...] 8:45 AM EDT Office Visit Adult Medicine [address] [phone] Ceci Martin MD [address], [place] documented as of this encounter Visit Diagnoses Not on filedocumented in this encounter Additional Health Concerns Assessment Noted Time PHQ-9 Depression Total Score: 0 02/16/20 9:44 AM EDT A fall risk assessment has been complete d for the patient 02/15/2025 10:01 AM EDT documented as of this encounter Care Teams Echocardiologist Relationship Specialty Start Date End Date Ceci Martin MD [address], [place] PCP - General Internal Medicine 06/12/20 documented as of this encounter
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
--- OUTSIDE RECORDS SUMMARY | 2025-03-09 05:23 | XMS_ITS | Encounter Summary ---
Author Organization [facility] [place] [address] Care Team Providers Care Trim Mounter Name Role Phone Ceci Martin MD Primary Care Provider [phone] Encounter Details Date Type Department Care Team (Late st Contact Info) Description 02/19/2025 Results Follow-Up Adult Medicine [address] [phone] Uyen Bush PA [address] [place], [place] Social History Tobacco Use Types Packs/Day [...] care for your loved ones. 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 [...] 8:45 AM EDT Office Visit Adult Medicine [address] [phone] Ceci Martin MD [address] [place], [place] documented as of this encounter Visit Diagnoses Not on filedocumented in this encounter Additional Health Concerns Assessment Noted Time PHQ-9 Depression Total Score: 0 02/16/20 9:44 AM EDT A fall risk assessment has been complete d for the patient 02/15/2025 10:01 AM EDT documented as of this encounter Care Teams Trim Mounter Relationship Specialty Start Date End Date Ceci Martin MD [address] [place], [place] PCP - General Internal Medicine 06/12/20 documented as of this encounter
--- OUTSIDE RECORDS SUMMARY | 2025-03-09 05:23 | XMS_ITS | Clinical Summary ---
Author Organization [facility] [address] [facility] Address [address] [place] [address] Phone Care Team Providers Care Tool And Die Technician Name Role Phone Ceci Martin MD Primary Care Provider [phone] Allergies Active Allergy Reactions Criticality Noted Date Comments Penicillins Swelling 09/09/2005 Medications multivitamin (MULTIPLE VITAMINS ORAL) 1 tab qd Activ e aspirin 81 mg EC tablet 1 TABLET DAILY Active simvastatin (ZOCOR) 40 mg tablet TAKE 1 TABLET BY MOUTH EVERYDAY AT BEDTIME 90 tablet 1 5 Active chlorthalidone (HYGROTON) 25 mg tablet TAKE 1 TABLET BY MOUTH EVERY DAY 90 tablet 1 5 Active lisinopriL (PRINIVIL,ZESTR IL) 20 mg tablet TAKE 1 TABLET BY MOUTH EVERY DAY 90 tablet 1 5 Active cholecalciferol (VITAMIN D-3) 50 mcg (2,000 unit) tablet Take 1 tablet (2,000 Units total) by mouth 1 (one) time each day. 90 tablet 1 5 Active levothyroxine (SYNTHROID, LEVOTHROID) 88 mcg tablet TAKE 1 TABLET (88 MCG TOTAL) BY MOUTH EVERY DAY BEFORE BREAKFAST 90 tablet 5 Active calcium carbonate/vitam in D3 (CALCIUM 500 + D ORAL) Take by mouth 1 (one) time each day. Active loperamide (IMODIUM A-D) 2 mg tablet Take 1 tablet (2 mg total) by mouth 4 (four) times a day if needed for diarrhea. Active hydrOXYzine HCL (ATARAX) 25 mg tablet 4 02/16/20 Discontinu ed(Therapy completed) triamcinolone (KENALOG) 0.1 % cream Apply to affect area 2 times daily. 4 02/16/20 Discontinu ed(Therapy completed) Active Problems Problem Noted Date Diagnosed Date Insomnia 02/14/2024 Memory impairment of gradual onset 10/06/2022 Overview (02/28/2024): Abnormal MMSE. . MRI and neuro consult pending Anxiety 09/22/2022 Colon polyp 10/06/2020 Overview (02/28/2024): 05/04 adenomatous; repeat CN 3 years Obstructive sleep apnea 02/14/2019 Overview (02/15/2025): UNTREATED (02/15/25) [facility] Polysomnogram: Date 02/08/2019; Wt 140#; BMI 30; SE 51%; SM 76%; REM 32%; RDI 13 (AHI 13), REM (RDI 26 - AHI 26), Central apneas 0; Obstructive apneas 12; Mixed apneas 0; hypopneas 29; RERAs 1; average oxygen saturation 93% (lowest 80% - without saturations <88% for 5% or more of study); PLMs 20. - Obstructive Sleep Apnea - mild overall and moderate in REM; mostly hypopneas with some obstructive apneas; without sleep related hypoventilation by 2019 polysomnogram. 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 Osteopenia 01/29/2013 Overview (02/28/2024): 01/2013 GERD (gastroesophageal reflux disease) 3 Allergic rhinitis 08/25/2010 Diffuse cystic mastopathy 09/09/2005 Hypothyroidism 09/09/2005 Overweight (BMI 25.0-29.9) 09/09/2005 Pure hypercholesterolemia 09/09/2005 Encounters Date Type Department Care Team Description 03/08/2025 9:30 AM EST Lab Draw Station [address] Diarrhea, unspecified type 03/08/2025 9:00 AM EST Office Visit [address] [phone] Uyen Bush PA Diarrhea, unspecified type (Primary Dx) 03/08/2025 Results Follow-Up [address] [phone] Uyen Bush PA 03/06/[address] [phone] Ceci Martin MD 03/01/2025 Nurse Triage [address] [phone] Lia Perez [place] 02/19/2025 Results Follow-Up [address] [phone] Uyen Bush PA 02/19/2025 Results Follow-Up [address] [phone] Uyen Bush PA 02/18/2025 1:40 PM EST Lab Draw Station - [address] Prediabetes; Pure hypercholesterolemia; Osteopenia, unspecified location; Acquired hypothyroidism; Primary hypertension 02/18/2025 7:50 AM EST Lab Draw Station [address] Prediabetes; Pure hypercholesterolemia; Osteopenia, unspecified location; Acquired hypothyroidism; Primary hypertension 02/15/2025 10:00 AM EDT Office Visit [address] [phone] Uyen Bush PA Encounter for annual wellness visit (AWV) in Medicare patient (Primary Dx); Prediabetes; Pure hypercholesterolemia; Osteopenia, unspecified location; Acquired hypothyroidism; Primary hypertension; Obstructive sleep apnea; Lesion of nose; Postmenopausal; Cognitive impairment 02/06/2025 Nurse Triage Adult Medicine [address] [phone] Ceci Martin MD 12/31/2024 9:36 AM EDT - 12/31/2024 11:59 PM EDT Hospital Encounter Radiology Department [address] [phone] Encounter for screening mammogram for breast cancer Discharge Disposition: Home or Self Care from Last 3 Months Immunizations Immunization Administration Dates Next Due Hepatitis B (Mkamlil-T-Itdhg , Recombivax HB-Adult) 19yo and older 11/15/2000,06/07/2000,05/06/2000 IPV Inactivated polio (Ipol) 6wks and older 05/06/2000 Influenza trivalent, 0.5mL ( Fluad) 65yo and older 01/10/2023,02/04/2022,02/03/2021,12/27,12/22/2017,02/02/2017,01/16/2016 Influenza trivalent, 0.5mL ( Fluzone High-dose) 65yo and older 01/02/2025 Influenza trivalent, 0.5mL, preservative free (Fluarix; FluLaval; Fluzone) ages 6mo and older (Afluria) 3 years and older 01/14/2015,02/20/2014,02/23/2012,01/04,01/15/2010,01/10/2009 Influenza trivalent, with pr eservative (Fluzone; Afluria) 6mo and older 12/23/2023 Influenza, Unspecified 02/03/2021 Pfizer SARS-CoV-2 COVID-19, mRNA, LNP-S, preservative free 03/04/2021 Pneumococcal conjugate 13 va lent (Prevnar 13, PCV13) 2mo and older 02/12/2016 Pneumococcal polysaccharide 23 valent (Pneumovax 23) 2yo and older 05/13/2014,02/26/2009 Td Tetanus diptheria (Tdvax) 7yo and older 02/11/2023,03/21/2003 Tdap Tetanus diptheria acell ular pertussis (Boostrix; Adacel) 7yo and older 06/08/2012 Zoster Live 11/08/2014 Zoster recombinant (Shingrix ) 19yo and older 04/08/2020,02/05/2020 Surgical History Surgery Date Site/Laterality Comments OTHER SURGICAL HISTORY 05/2003 ORIF fibula fracture TUBAL LIGATION TONSILLECTOMY BREAST SURGERY : rt lumpectomy neg yrs ago COLONOSCOPY 05/2005 : Normal COLONOSCOPY W/ POLYPECTOMY 04/29/2016 adenomas; repeat in 3 yrs ESOPHAGOGASTRODUODENOSCOPY 10/23/2012 normal ESOPHAGOGASTRODUODENOSCOPY 04/06/2017 : normal COLONOSCOPY 02/11/2021 diverticulosis HYSTERECTOMY Medical History Medical History Date Comments Diffuse cystic mastopathy 09/09/2005 Pure hypercholesterolemia 09/09/2005 Overweight(278.02) 09/09/2005 Unspecified hypothyroidism 09/09/2005 GERD (gastroesophageal reflux disease) 3 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, [facility] V28) Osteopenia Colon polyp 10/06/202005/04 adenomatous ; repeat CN 3 years Uterine cancer ([facility] V24, [facility] V28) Hypertension 04/14/2017 Family History Medical History Relation Name Comments Heart attack Brother 1 Heart failure Brother 2 hypertension d eceased Heart failure Father ; [place] Heart failure Mother ; CABG , dementia Hyperlipidemia Sister Breast cancer Neg Hx Colon cancer Neg Hx Ovarian cancer Neg Hx Uterine cancer Neg Hx Relation Name Status Comments Brother 1 (Age 49) Brother 2 Father (Age 72) Maternal Grandfather Maternal Grandmother [place] Mother (Age 95) Paternal Grandfather Paternal Grandmother [place] Sister Social History Tobacco Use Types Packs/Day Years [...] care for your loved ones. For example, children teacher or elderly care for an older [...] on file Sexual Orientation Not on file Obstetrics History Para Term AB IAB SAB Ectopic Multiple Livin g Live Births 4 4 4 4 Date Outcome GA Total Labor Labor/2nd/3rd Weight Sex Type Anes PTL Vy A1 A5 Name Clin Term Term Term Term Last Filed Vital Signs Vital Sign Reading [...] Mass Index 25.78 03/08/2025 8:37 AM EST Plan of Treatment Upcoming Encounters Date Type Department Care Team (Late st Contact Info) Description 08/14/2025 8:45 AM EDT Office Visit Adult Medicine [address] [phone] Ceci Martin MD [address] [place], [place] Health Maintenance Due Date Last Done Comments IPV Vaccines (2 of 3 - Adult catch-up series) 06/03/2000 05/06/2000 RSV Immunization Adult Patients (1 - 1-dose 75+ series) 02/22/2020 Osteoporosis Screening (Bone Density Screening) 03/27/2022 12/14/2019 COVID-19 Vaccine ( season) 2024 03/04/2021, 06/17/2020, 05/27/2020 Falls Risk Assessment 02/15/2026 02/15/2025, 024 Medicare Annual Wellness Visit 02/15/2026 02/15/2025 Social Influencers of Health Screening 02/15/2026 02/15/2025 Hypertension/CHF/CAD Annual BMP Blood Test 03/08/2026 03/08/2025, 02/18/2025, 02/14/2024, Additional history exists Cholesterol Screening (Lipid Panel) 02/18/2030 02/18/2025, 02/14/2024, 02/14/2024, Additional history exists DTaP,Tdap,and Td Vaccines (4 - Td or Tdap) 02/11/2033 02/11/2023, 06/08/2012, 03/21/2003 Hepatitis B Vaccines Completed 11/15/2000, 06/07/2000, 05/06/2000 Pneumococcal Vaccine: 50+ Years Completed 02/12/2016, 05/13/2014, 02/26/2009 Zoster Vaccines Completed 04/08/2020, 01/17, 11/08/2014 Influenza Vaccine Completed 01/02/2025, , 01/10/2023, Additional history exists Depression Screening Completed 02/15/2025, 04/21/19 24 HIB Vaccines Aged Out No longer eligi ble based on patient's age to complete this topic HPV Vaccines Aged Out No longer eligi ble based on patient's age to complete this topic Hepatitis A Vaccines Aged Out No long er eligible based on patient's age to complete this topic MMR Vaccines Aged Out No longer eligi ble based on patient's age to complete this topic Meningococcal ACWY Vaccine Aged Out N o longer eligible based on patient's age to complete this topic Meningococcal B Vaccine Aged Out No l onger eligible based on patient's age to complete this topic RSV Immunization Patients Under 20 months Aged Out No longer eligible based on patient's age to complete this topic Varicella Vaccines Aged Out No longer eligible based on patient's age to complete this topic Procedures Procedure Name Priority Date/Time Associated Diagnosis Comments CBC WITH AUTO DIFFERENTIAL Routine 03/08/2025 9:28 AM EST Diarrhea, unspecified type SEDIMENTATION RATE Routine 03/08/2025 9: 28 AM EST Diarrhea, unspecified type COMPREHENSIVE METABOLIC PANEL Routine 03/08/2025 9:28 AM EST Diarrhea, unspecified type CBC AND DIFFERENTIAL Routine 03/08/2025 9:28 AM EST Diarrhea, unspecified type MICROALBUMIN CREATININE URINE RATIO Routine 02/18/2025 1:40 PM EST Prediabetes Pure hypercholesterolemia Osteopenia, unspecified location Acquired hypothyroidism Primary hypertension THYROID STIMULATING HORMONE Routine 02/18/2025 7:58 AM EST Prediabetes Pure hypercholesterolemia Osteopenia, unspecified location Acquired hypothyroidism Primary hypertension HEMOGLOBIN A1C Routine 02/18/2025 7:58 AM EST Prediabetes Pure hypercholesterolemia Osteopenia, unspecified location Acquired hypothyroidism Primary hypertension LIPID PANEL WITH REFLEX TO DIRECT LDL Routine 02/18/2025 7:58 AM EST Prediabetes Pure hypercholesterolemia Osteopenia, unspecified location Acquired hypothyroidism Primary hypertension COMPLETE BLOOD COUNT Routine 02/18/2025 7:58 AM EST Prediabetes Pure hypercholesterolemia Osteopenia, unspecified location Acquired hypothyroidism Primary hypertension COMPREHENSIVE METABOLIC PANEL Routine 02/18/2025 7:58 AM EST Prediabetes Pure hypercholesterolemia Osteopenia, unspecified location Acquired hypothyroidism Primary hypertension MG MAMMO DIGITAL SCREENING W SEVERO BILAT Routine 12/31/2024 9:47 AM EDT Encounter for screening mammogram for breast cancer FALLS RISK ASSESSMENT Routine 08/15/2023 DEPRESSION SCREENING Routine 04/21/2023 DXA BONE DENSITY STUDY 1+ SITS AXIAL SKEL Routine 12/14/2019 2:42 PM EDT Encounter for prophylactic measures, unspecified from Last 3 Months or Most Recently Relevant to Health Maintenance Results * (ABNORMAL) CBC auto differential (03/08/2025 9:28 AM EST) [facility] WBC 10.3 4.8 - 10.8 [facility] LAB HEMETOLOGY METHOD 03/08/2025 12:19 PM EST [facility] RBC 4.70 3.80 - 4.80 M/mcL LAB HEMETOLOGY METHOD 03/08/2025 12:19 PM [facility] Hemoglobin 14.2 11.5 - 16.0 g/dL LAB HEMETOLOGY METHOD 03/08/2025 12:19 PM [facility] Hematocrit 43.2 35.0 - 47.0 % LAB HEMETOLOGY METHOD 03/08/2025 12:19 PM [facility] MCV 92.3 79.0 - 98.0 FL LAB HEMETOLOGY METHOD 03/08/2025 12:19 PM [facility] MCH 30.3 27.0 - 32.0 pcg LAB HEMETOLOGY METHOD 03/08/2025 12:19 PM [facility] MCHC 32.9 32.0 - 37.0 g/dL LAB HEMETOLOGY METHOD 03/08/2025 12:19 PM [facility] RDW 12.3 11.0 - 15.0 % LAB HEMETOLOGY METHOD 03/08/2025 12:19 PM [facility] Platelets 413(H) 130 - 400 K/mcL LAB HEMETOLOGY METHOD 03/08/2025 12:19 PM [facility] MPV 9.9 7.0 - 11.0 FL LAB HEMETOLOGY METHOD 03/08/2025 12:19 PM [facility] NRBC 0.0 <1.0 % LAB HEMETOLOGY METHOD 03/08/2025 12:19 PM [facility] NRBC Absolute 0.00 <0.10 K/mcL LAB HEMETOLOGY METHOD 03/08/2025 12:19 PM [facility] Neutrophils Relative 86.3 % LAB HEMETOLOGY METHOD 03/08/2025 12:19 PM [facility] Lymphocytes Relative 7.2 % LAB HEMETOLOGY METHOD 03/08/2025 12:19 PM [facility] Monocytes Relative 5.0 % LAB HEMETOLOGY METHOD 03/08/2025 12:19 PM [facility] Eosinophils Relative 0.3 % LAB HEMETOLOGY METHOD 03/08/2025 12:19 PM [facility] Basophils Relative 0.9 % LAB HEMETOLOGY METHOD 03/08/2025 12:19 PM [facility] Immature Granulocytes Relative 0.3 % LAB HEMETOLOGY METHOD 03/08/2025 12:19 PM [facility] Neutrophils Absolute 8.85(H) 1.50 - 7.00 K/mcL LAB HEMETOLOGY METHOD 03/08/2025 12:19 PM [facility] Lymphocytes Absolute 0.74(L) 1.00 - 5.00 K/mcL LAB HEMETOLOGY METHOD 03/08/2025 12:19 PM [facility] Monocytes Absolute 0.51 0.20 - 1.00 K/mcL LAB HEMETOLOGY METHOD 03/08/2025 12:19 PM [facility] Eosinophils Absolute 0.03 0.00 - 0.50 K/mcL LAB HEMETOLOGY METHOD 03/08/2025 12:19 PM [facility] Basophils Absolute 0.09 0.00 - 0.20 K/mcL LAB HEMETOLOGY METHOD 03/08/2025 12:19 PM [facility] Immature Granulocytes Absolute 0.03 0.00 - 0.03 K/mcL LAB HEMETOLOGY METHOD 03/08/2025 12:19 PM [facility] Blood Venous blood specimen / Unknown Venipuncture / Unknown 03/08/2025 9:28 AM EST 03/08/2025 9:28 AM EST us Uyen ARNOLD LAB BLOOD ORDERABLES Final Re sult [facility] [address] [place] [address], [place] [phone] * Sedimentation rate (03/08/2025 9:28 AM EST) [facility] Sed Rate 14 0 - 30 mm/hr LAB HEMETOLOGY METHOD 03/08/2025 12:24 PM [facility] Blood Venous blood specimen / Unknown Venipuncture / Unknown 03/08/2025 9:28 AM EST 03/08/2025 9:28 AM EST us Uyen ARNOLD LAB BLOOD ORDERABLES Final Re sult [facility] [address] [place] [address], [place] [phone] * (ABNORMAL) Comprehensive metabolic panel (03/08/2025 9:28 AM EST) Only the most recent of2 resultswithin the time period is included. [facility] Sodium 137 133 - 145 mmol/L 03/08/2025 1:19 PM [facility] Potassium 3.7 3.5 - 5.5 mmol/L 03/08/2025 1:19 PM [facility] Chloride 97 96 - 110 mmol/L 03/08/2025 1:19 PM [facility] CO2 30 21 - 32 mmol/L 03/08/2025 1:19 PM [facility] Anion Gap 10 3 - 11 03/08/2025 1:19 PM [facility] Glucose 149(H) 70 - 100 mg/dL 03/08/2025 1:19 PM [facility] BUN 22 5 - 25 mg/dL 03/08/2025 1:19 PM [facility] Creatinine 1.27(H) 0.50 - 1.10 mg/dL 03/08/2025 1:19 PM [facility] eGFR 43(L) >=60 mL/min/1. 73m2 03/08/2025 1:19 PM [facility] Comment:Calculation based on the Chronic Kidney Disease Epidemiology Collaboration (CKD-EPI) equation refit without adjustment for race. BUN/Creatinine Ratio 17.3 03/08/2025 1:19 PM [facility] Calcium 8.7 8.5 - 10.5 mg/dL 03/08/2025 1:19 PM [facility] AST (SGOT) 14 10 - 42 unit/L 03/08/2025 1:19 PM [facility] ALT (SGPT) 14 10 - 60 unit/L 03/08/2025 1:19 PM [facility] Alkaline Phosphatase 67 42 - 121 unit/L 03/08/2025 1:19 PM [facility] Total Protein 7.0 6.0 - 8.0 g/dL 03/08/2025 1:19 PM [facility] Albumin 3.9 3.2 - 5.0 g/dL 03/08/2025 1:19 PM [facility] Total Bilirubin 0.5 0.0 - 1.4 mg/dL 03/08/2025 1:19 PM [facility] Blood Venous blood specimen / Unknown Venipuncture / Unknown 03/08/2025 9:28 AM EST 03/08/2025 9:28 AM EST us Uyen ARNOLD LAB BLOOD ORDERABLES Final Re sult [facility] [address] [place] [address], * Microalbumin creatinine urine ratio (02/18/2025 1:40 PM EST) Creatinine, Urine 27.0 mg/dL LAB CHEMISTRY METHOD 02/18/2025 5:58 PM [facility] Microalb, Ur <5.0 0.0 - 29.0 mg/L LAB CHEMISTRY METHOD 02/18/2025 5:58 PM [facility] Microalb/Creat Ratio <19 <30 mg/g creat LAB CHEMISTRY METHOD 02/18/2025 5:58 PM [facility] Urine Urine specimen obtained by clean catch procedure / Unknown Non-blood Collection / Unknown 02/18/2025 1:40 PM EST 02/18/2025 1:40 PM EST us Uyen ARNOLD LAB URINE ORDERABLES Final Re sult [facility] [address] [place] [address], [place] [phone] * (ABNORMAL) Lipid panel with reflex to direct LDL (02/18/2025 7:58 AM EST) Cholesterol 238(H) 0 - 200 mg/dL LAB CHEMISTRY METHOD 02/18/2025 11:09 AM [facility] Triglycerides 95 0 - 150 mg/dL LAB CHEMISTRY METHOD 02/18/2025 11:09 AM [facility] HDL 99 >=40 mg/dL LAB CHEMISTRY METHOD 02/18/2025 11:09 AM [facility] LDL Calculated 120(H) 0 - 100 mg/dL LAB CHEMISTRY METHOD 02/18/2025 11:09 AM [facility] Comment:Estimated LDL Calcul ated using equation: Total cholesterol - HDL cholesterol - (Triglycerides/5) VLDL Cholesterol Demetris 19 mg/dL LAB CHEMISTRY METHOD 02/18/2025 11:09 AM [facility] Non HDL Chol. (LDL+VLDL) 139 <145 mg/dL LAB CHEMISTRY METHOD 02/18/2025 11:09 AM [facility] Chol/HDL Ratio 2.4 0.0 - 4.4 LAB CHEMISTRY METHOD 02/18/2025 11:09 AM [facility] Blood Venous blood specimen / Unknown Venipuncture / Unknown 02/18/2025 7:58 AM EST 02/18/2025 7:58 AM EST us Uyen ARNOLD LAB BLOOD ORDERABLES Final Re sult [facility] [address] [place] [address], * (ABNORMAL) Complete blood count (02/18/2025 7:58 AM EST) WBC 6.0 4.8 - 10.8 K/mcL LAB HEMETOLOGY METHOD 02/18/2025 10:35 AM [facility] RBC 4.90(H) 3.80 - 4.80 M/mcL LAB HEMETOLOGY METHOD 02/18/2025 10:35 AM [facility] Hemoglobin 14.7 11.5 - 16.0 g/dL LAB HEMETOLOGY METHOD 02/18/2025 10:35 AM [facility] Hematocrit 46.1 35.0 - 47.0 % LAB HEMETOLOGY METHOD 02/18/2025 10:35 AM [facility] MCV 93.5 79.0 - 98.0 FL LAB HEMETOLOGY METHOD 02/18/2025 10:35 AM [facility] MCH 29.8 27.0 - 32.0 pcg LAB HEMETOLOGY METHOD 02/18/2025 10:35 AM [facility] MCHC 31.9(L) 32.0 - 37.0 g/dL LAB HEMETOLOGY METHOD 02/18/2025 10:35 AM [facility] RDW 12.9 11.0 - 15.0 % LAB HEMETOLOGY METHOD 02/18/2025 10:35 AM [facility] Platelets 313 130 - 400 K/mcL LAB HEMETOLOGY METHOD 02/18/2025 10:35 AM EST [facility] MPV 10.8 7.0 - 11.0 FL LAB HEMETOLOGY METHOD 02/18/2025 10:35 AM EST [facility] NRBC 0.0 <1.0 % LAB HEMETOLOGY METHOD 02/18/2025 10:35 AM EST [facility] NRBC Absolute 0.00 <0.10 K/mcL LAB HEMETOLOGY METHOD 02/18/2025 10:35 AM EST [facility] Blood Venous blood specimen / Unknown Venipuncture / Unknown 02/18/2025 7:58 AM EST 02/18/2025 7:58 AM EST us Uyen ARNOLD LAB BLOOD ORDERABLES Final Re sult [facility] [address] [place] [address], [place] [phone] * (ABNORMAL) Thyroid stimulating hormone (02/18/2025 7:58 AM EST) Pathologist [facility] TSH 5.34(H) 0.40 - 4.00 mcIU/mL LAB CHEMISTRY METHOD 02/18/2025 11:55 AM EST [facility] Blood Venous blood specimen / Unknown Venipuncture / Unknown 02/18/2025 7:58 AM EST 02/18/2025 7:58 AM EST us Uyen ARNOLD LAB BLOOD ORDERABLES Final Re sult [facility] [address] [place] [address], [place] [phone] * Hemoglobin A1c (02/18/2025 7:58 AM EST) Hemoglobin A1C 5.9 <6.5 % LAB CHEMISTRY METHOD 02/18/2025 4:[address] [facility] Mean Bld Glu Estim. 123 mg/dL LAB CHEMISTRY METHOD 02/18/2025 4:25 PM EST [facility] Blood Venous blood specimen / Unknown Venipuncture / Unknown 02/18/2025 7:58 AM EST 02/18/2025 7:58 AM EST us Uyen ARNOLD LAB BLOOD ORDERABLES Final Re sult [facility] [address] [place] [address], [place] [phone] * MG Mammo Digital Screening w Severo bilat (12/31/2024 9:47 AM EDT) Anatomical Region Laterality Modality Breast Bilateral Mammography 01/01/2025 7:02 PM EDT Impressions 01/01/2025 7:04 PM EDT No mammographic evidence of malignancy. BREAST DENSITY: D - The breasts are extremely dense which lowers the sensitivity of mammography. BI-RADS CATEGORY: 1 - NEGATIVE RECOMMENDATION: Screening bilateral mammogram is recommended in 1 year. MAMMO LOCATION: [facility], [address] [place] [address], [id number], . -------- FINAL REPORT -------- Dictated By: Leah Mckenna Dictated Date: 01/01/2025 19:02 ET Assigned Physician: Leah Mckenna Reviewed and Electronically Signed By: Leah Mckenna Signed Date: 01/01/2025 19:04 ET Workstation ID: [id number] Transcribed By: Self Edit Transcribed Date: 01/01/2025 19:02 ET Narrative 01/01/2025 7:04 PM EDT EXAM: Screening Mammogram CLINICAL: 79 years old, Female, routine annual exam. Remote history of a benign right excisional biopsy. COMPARISON: 11/16/2023 and as far back as 07/23/2020 TECHNIQUE: Bilateral MLO and CC views were obtained digitally with 3-D mammogram (digital breast tomosynthesis). Computer-aided detection was utilized in evaluation of this exam (CAD). FINDINGS: No new suspicious mass, architectural distortion, or suspicious calcifications. Procedure Note Leah Mckenna MD - 01/01/2025 EXAM: Screening Mammogram CLINICAL: 79 years old, Female, routine annual exam. Remote history of abenign right excisional biopsy. COMPARISON: 11/16/2023 and as far back as 07/23/2020 TECHNIQUE: Bilateral MLO and CC views were obtained digitally with 3-Dmammogram (digital breast tomosynthesis). Computer-aided detection wasutilized in evaluation of this exam (CAD). FINDINGS: No new suspicious mass, architectural distortion, or suspiciouscalcifications. IMPRESSION: No mammographic evidence of malignancy. BREAST DENSITY: D - The breasts are extremely dense which lowers thesensitivity of mammography. BI-RADS CATEGORY: 1 - NEGATIVE RECOMMENDATION: Screening bilateral mammogram is recommended in 1 year. MAMMO LOCATION: [facility], [address] [place] [address], [id number], . -------- FINAL REPORT -------- Dictated By: Leah Mckenna Dictated Date: 01/01/2025 19:02 ET Assigned Physician: Leah Mckenna Reviewed and Electronically Signed By: Leah Mckenna Signed Date: 01/01/2025 19:04 ET Workstation ID: [id number] Transcribed By: Self Edit Transcribed Date: 01/01/2025 19:02 ET Ceci Martin MD IMG BI PROCEDURES Final Result * Falls Risk Assessment (08/15/2023) Falls Risk Assessment abstracted Historical Provider HEALTH MAINTENANCE Final Result * Depression Screening (04/21/2023) Depression Screening abstracted Historical Provider HEALTH MAINTENANCE Final Result * DXA BONE DENSITY STUDY 1+ SITS AXIAL SKEL (12/14/2019 2:42 PM EDT) Anatomical Region Laterality Modality Bone Densitometr y 03/07/2019 9:06 AM EST Narrative 12/17/2019 5:48 PM EDT BONE DENSITY Lumbar Spine T-score is -0.9 (SD relative to 20-29 y/o adult) Z-score is +1.5 (SD relative to age matched peers) This is normal by criteria defined by the WHO. Left Hip T-score is -1.5 Z-score is +0.6 This is consistent with osteopenia by criteria defined by the WHO. Comparison exam(s): significant increase in bone density of hip and lumbar spine when compared to most recent bone density examination Confidence level is +/-95%. Impression: Based on the World Health Organization criteria, Luz Niño should be classified as having osteopenia. This patient has a 11% risk of major osteoporotic fracture and a 2.2% risk of hip fracture over the next 10 years. (World Health Organization Fracture Risk Assessment) [facility] Department of Internal Medicine recommends using National Osteoporosis Foundation (NOF) guidelines in treatment decisions related to osteoporosis. NOF guidelines suggest considering treatment for postmenopausal women and men aged 50 or older presenting with the following: History of hip or vertebral fracture. T-score less than or equal to -2.5 (DXA) at the femoral neck, total hip, or spine, after appropriate evaluation to exclude secondary causes. Low bone mass (T-score between -1.0 and -2.5 at the femoral neck or spine) AND a 10-year probability of a hip fracture greater than or equal to 3% OR a 10-year probability of a major osteoporosis-related fracture greater than or equal to 20% based on the [place]-adapted WHO algorithm Please note that all treatment decisions require clinical judgment and consideration of individual patient factors, including patient preferences, co-morbidities, previous drug use, risk factors not captured in the FRAX model (e.g., frailty, falls, vitamin D deficiency, increased bone turnover, interval significant decline in bone density) and possible under- or over-estimation of fracture risk by FRAX. Procedure Note Sheyla Drew MD - 04/06/2022 BONE DENSITY Lumbar Spine T-score is -0.9 (SD relative to 20-29 y/o adult) Z-score is +1.5 (SD relative to age matched peers) This is normal by criteria defined by the WHO. Left Hip T-score is -1.5 Z-score is +0.6 This is consistent with osteopenia by criteria defined by the WHO. Comparison exam(s): significant increase in bone density of hip andlumbar spine when compared to most recent bone density examination Confidence level is +/-95%. Impression: Based on the World Health Organization criteria, Luz Niño should beclassified as having osteopenia. This patient has a 11% risk of majorosteoporotic fracture and a 2.2% risk of hip fracture over the next 10years. (World Health Organization Fracture Risk Assessment) [facility] Department of Internal Medicine recommendsusing National Osteoporosis Foundation (NOF) guidelines in treatmentdecisions related to osteoporosis. NOF guidelines suggest consideringtreatment for postmenopausal women and men aged 50 or older presentingwith the following: History of hip or vertebral fracture. T-score less than or equal to -2.5 (DXA) at the femoral neck, total hip,or spine, after appropriate evaluation to exclude secondary causes. Low bone mass (T-score between -1.0 and -2.5 at the femoral neck or spine)AND a 10-year probability of a hip fracture greater than or equal to 3% ORa 10-year probability of a major osteoporosis-related fracture greaterthan or equal to 20% based on the [place]-adapted WHO algorithm Please note that all treatment decisions require clinical judgment andconsideration of individual patient factors, including patientpreferences, co-morbidities, previous drug use, risk factors not capturedin the FRAX model (e.g., frailty, falls, vitamin D deficiency, increasedbone turnover, interval significant decline in bone density) and possibleunder- or over-estimation of fracture risk by FRAX. Vera Waldron MD IM DXA PROCEDURES Final Resul t from Last 3 Months or Most Recently Relevant to Health Maintenance Insurance MEDICARE [facility] Care Teams Tool [employer] Techn[employer] Relationship Specialty Start Date End Date Ceci Martin MD [address] [place] [id number] PCP - General Internal Medicine 06/12/20
--- OUTSIDE RECORDS SUMMARY | 2025-03-09 05:23 | XMS_ITS ---
Author Name [facility] Organization Unknown Care Team Organization Name Specialty Phone Email Start Date End Da te [facility] 12/05/2024 [facility] Uyen [facility] 09/24/202211/16 [facility] Ceci Martin [facility] 02/23/2022
[2025-03-09 05:32] LABS: Hematocrit 41.8 % (37.0-47.0); Hemoglobin 14.4 g/dl (12.0-16.0); Imm Gran Abs Auto 0.03 X10*3/uL (0.00-0.03); Imm Gran Pct Auto 0.3 % (0.0-0.4); Lymphocytes Absolute Auto 0.6 X10*3/uL (1.2-4.9); MANUAL DIFF FLAG NO; Mean Corpuscular HGB Conc 34.4 g/dl (31.0-35.0); Mean Corpuscular Hemoglobin 30.6 pg (27.0-33.0); Mean Corpuscular Volume 88.9 fL (80.0-98.0); NRBC Abs Auto 0.000 X10*3/uL (0.0-0.012); NRBC Pct Auto 0.0 /100WBC (0.0-0.2); Platelet Count 345 X10*3/uL (160-400); Red Blood Count 4.70 X10*6/uL (4.20-5.50); White Blood Count 11.5 X10*3/uL (4.8-10.8)
[2025-03-09 05:47] LABS: Alanine Aminotransferase 9 U/L (0-31); Albumin Level 3.9 g/dL (3.5-5.0); Alkaline Phosphatase 59 U/L (39-117); Anion Gap 14 (12-20); Aspartate Amino Transferase 15 U/L (5-31); Blood Urea Nitrogen 24 mg/dL (9-16); Calcium 9.2 mg/dL (8.4-10.2); Carbon Dioxide 28 mmol/L (22-29); Chloride 99 mmol/L (96-108); Creatinine Clr Calc Pharmacy 28.1; Estimated Glomerular Filt Rate 40; Lipase 6 U/L (8-78); Magnesium 1.7 mg/dL (1.6-2.6); Potassium 3.4 mmol/L (3.3-5.1); Sodium 138 mmol/L (135-145); Total Protein 6.7 g/dL (6.5-8.0)
--- NOTE | 2025-03-09 05:47 | ED_ITS ---
HPI - Nausea/Vomiting/Diarrhea General Chief complaint: Nausea/Vomiting/Diarrhea Stated complaint: Nausea Vomiting Diarrhea Time Seen by Provider: 03/09/25 05:45 Source: patient and family () Mode of arrival: ambulatory Limitations: no limitations History of Present Illness ED Provider: Dr. Cristi Lyn HPI Narrative: 80-year-old female with a history of hypothyroidism, hypertension who presents emergency department for evaluation of 1.5 weeks of diarrhea. Patient has anywhere from 3-6 bowel movements per day. She describes the stool as soft to watery, brown with no blood. She denied abdominal pain, nausea or vomiting. She has not been on antibiotics recently. She has had no recent travel. There were no other people around her that have diarrhea. has been occasionally giving her Imodium but she has had no Imodium for several days. She was seen by her PCP yesterday and told to not take Imodium and to stay on a brat diet. Patient continued to have diarrhea last night in his morning therefore her brought her to the emergency department for evaluation. The patient has had decreased appetite and poor fluid intake. She denied lightheadedness dizziness or weakness. Review of systems was negative for fever, chills, cough, chest pain, shortness of breath, nausea, vomiting, abdominal pain, frequency, urgency or dysuria. Related Data Previous Rx's ?Medication ?Instructions ?Recorded vancomycin 125 mg capsule 125 mg PO QID 10 days #40 ca ps 03/09/25 Allergies Allergy/AdvReac Type Severity Reaction Status Date / Time Penicillins (PENICILLINS) Allergy Unknown UNKNOWN Verified 03/09/25 05:07 Review of Systems 2 Review of Systems: Yes all other systems are reviewed and are negative [facility] Past Medical History [facility] Narrative: Social history: She lives with her , Dylan who is here in the emergency department with her. She denies tobacco, alcohol and drug use. Medical History HTN (hypertension) Hypothyroid Social History Social History Advance Directives: No Advance Directives Information Provided: No Do you have a plan to hurt others: No Plan Physical Exam 2 Vital Signs: Vital Signs: Last Vital Signs Temp 97.6 F 03/09/25 07:45 Pulse 87 03/09/25 07:45 Resp 18 03/09/25 07:45 BP 117/54 L 03/09/25 07:45 Pulse Ox 96 03/09/25 07:45 O2 Del Method Room Air 03/09/25 07:45 BMI result Body Mass Index 25.6 Vital signs were normal. Exam: General: Awake, alert in no distress Head: Normocephalic, atraumatic EENT: PERRL, sclera and conjunctiva are normal, mouth with no erythema or exudates Neck: Supple, no adenopathy Lung: breath sounds symmetric, no wheezing, no rales and no rhonchi Chest: symmetric movement, nontender Heart: regular rate and rhythm, normal S1, S2 no murmurs or rubs Abdomen: soft, non-tender, nondistended, normal bowel sounds Back: no vertebral tenderness, no CVAT Extremities: no deformities, moves all extremities symmetrically, no edema Neuro: Awake, alert, oriented, normal speech, cranial nerves 2-12 intact, moves all extremities symmetrically Psych: Pleasant, cooperative Medications Administered Discontinued Medications Generic Name Dose Route Start Last Admin Trade Name Freq PRN Reason Stop Dose Admin Lactated Ringer's 1,785 mls @ 1,785 mls/hr 03/09/25 06:03 03/09/25 08:35 Lr 30 ml/kg infuse over 1 hr (1785 ml) 03/09/25 07:02 Infused IV Infusion .Q1H ONE Medical Decision Making Medical Decision Making MDM Narrative: 80-year-old female with a history of hypothyroidism, hypertension who presents emergency department for evaluation of 1.5 weeks of diarrhea. Patient has anywhere from 3-6 bowel movements per day. She describes the stool as soft to watery, brown with no blood. She denied abdominal pain, nausea or vomiting. She has not been on antibiotics recently. She has had no recent travel. There were no other people around her that have diarrhea. has been occasionally giving her Imodium but she has had no Imodium for several days. She was seen by her PCP yesterday and told to not take Imodium and to stay on a brat diet. Patient continued to have diarrhea last night in his morning therefore her brought her to the emergency department for evaluation. The patient has had decreased appetite and poor fluid intake. She denied lightheadedness dizziness or weakness. Review of systems was negative for fever, chills, cough, chest pain, shortness of breath, nausea, vomiting, abdominal pain, frequency, urgency or dysuria. Vital signs were normal. Physical examination was unremarkable with no abdominal tenderness. Differential diagnosis: ?Includes but is not limited to viral syndrome, COVID- 19, influenza, food poisoning, C difficile colitis, diverticulitis, pancreatitis, anemia, electrolyte abnormalities, volume depletion, dehydration Course: 06:09 My interpretation patient's laboratory evaluation as follows: CBC was normal. BUN and creatinine elevated 24 and 1.29, low GFR 40. BUN and creatinine has elevated compared to 01/10/2022 when her BUN and creatinine was 10 and 0.72 with a GFR of greater than 60. This suggests that she is volume depleted from her diarrhea. CMP was normal. Lipase was normal. I did order C diff and GI panel, IV insert and lactated Ringer's x1 L. 09:54 C diff was positive for toxin B gene and positive for toxin A and B suggesting the patient has an active C diff infection at this time. I did discuss this with the patient and the patient's . Patient was able to drink roger sharif and eat crackers here in the emergency department, she is having no fever or significant abdominal pain therefore I do not think that she needs to be hospitalized at this time for C diff. patient. The patient was treated with vancomycin 125 mg orally and given a prescription for vancomycin 125 mg orally q.i.d. times 10 days. She was advised to increase your fluid intake and given printed and verbal instructions on C diff colitis. Patient was discharged home in the care of her . Patient's GI panel is pending at this time. Differential Diagnosis Differential Diagnoses: The differential diagnosis associated with the presentation includes (See above) Admission/Observation Consideration of admission/observation: Escalation of care including admission/observation considered (Yes) Lab Data MDM Lab Attestation statement: I reviewed the patient's lab results. 03/09/25 05:26 03/09/25 05:26 Labs: Lab Results 03/09/25 03/09/25 03/09/25 Range/Units 05:26 06:15 07:44 WBC 11.5 H (4.8-10.8) X10*3/uL RBC 4.70 (4.20-5.50) X10*6/uL Hgb 14.4 (12.0-16.0) g/dl Hct 41.8 (37.0-47.0) % MCV 88.9 (80.0-98.0) fL MCH 30.6 (27.0-33.0) pg MCHC 34.4 (31.0-35.0) g/dl RDW 12.4 (11.0-16.0) % Plt Count 345 (160-400) X10*3/uL MPV 9.3 L (9.4-12.3) fL Immature Gran % (Auto) 0.3 (0.0-0.4) % Neut % (Auto) 86.9 H (45-73) % Lymph % (Auto) 5.3 L (20-40) % [place] % (Auto) 6.2 (2-11) % Eos % (Auto) 0.3 (0-4) % Baso % (Auto) 1.0 (0-2) % Lymph # (Auto) 0.6 L (1.2-4.9) X10*3/uL [place] # (Auto) 0.7 (0.1-1.2) X10*3/uL Eos # (Auto) 0.0 (0.0-0.4) X10*3/uL Baso # (Auto) 0.1 (0.0-0.2) X10*3/uL Abs Immat Gran (auto) 0.03 (0.00-0.03) X10*3/uL Absolute Neuts (auto) 10.0 H (2.0-8.3) x10*3/uL Absolute Nucleated RBC 0.000 (0.0-0.012) X10*3/uL Nucleated RBC % (auto) 0.0 (0.0-0.2) /100WBC Sodium 138 (135-145) mmol/L Potassium 3.4 (3.3-5.1) mmol/L Chloride 99 (96-108) mmol/L Carbon Dioxide 28 (22-29) mmol/L Anion Gap 14 (12-20) BUN 24 H (9-16) mg/dL Creatinine 1.29 (0.5-1.4) mg/dL Estim Creat Clear Calc 28.1 Estimated GFR 40 Random Glucose 167 H (60-115) mg/dL Calcium 9.2 D (8.4-10.2) mg/dL Magnesium 1.7 (1.6-2.6) mg/dL Total Bilirubin 0.7 (0.0-1.0) mg/dL AST 15 (5-31) U/L ALT 9 (0-31) U/L Alkaline Phosphatase 59 (39-117) U/L Total Protein 6.7 (6.5-8.0) g/dL Albumin 3.9 (3.5-5.0) g/dL Lipase 6 L (8-78) U/L C. difficile Tox B Gene POSITIVE A* (Negative) C. difficile Toxin A&B Positive A* (Negative) C. difficile Interpret SEE NOTE COVID-19 (EDWINA) Negative (Negative) COVID-19 Clin Com See Note Influenza Type A (SEKOU) Negative (Negative) Influenza Type B (SEKOU) Negative (Negative) Influenza A & B Note See Note Independent Historian Clinical information obtained from an independent historian. History obtained from or confirmed by: Spouse Chronic Conditions Patient?s care impacted by: Hypertension and Other (Hypothyroidism) Discharge Plan Discharge Clinical Impression: Clostridium difficile colitis, Volume depletion Patient Disposition: Home, Self-Care Instructions: C. Diff (Clostridioides Difficile) Infection (ED) Additional Instructions: Your blood work did reveal slight elevation in your kidney function which is caused by dehydration from your frequent diarrhea and from you not drinking as much fluid as you need. It is important that you increase the amount of fluid that you drink to prevent further dehydration. You should drink fluids with sugar and electrolytes (roger sharif, juices, Gatorade, Pedialyte). Your diarrhea was positive for Clostridium difficile bacteria and this is the cause of your diarrhea. Take vancomycin 125 mg orally 4 times a day for 10 days. This has the treatment for C difficile colitis. I also ordered a GI panel which tests you for proximally 10-20 different organisms that can cause diarrhea. These results are pending and your doctor can check this result or you can check this result on the patient portal to see if there is any other infection causing your diarrhea as well. If you develop fever, chills, abdominal pain, nausea, vomiting, weakness, inability eat or drink then you should return to emergency department for IV fluids and further treatment. Continue taking your other medications as prescribed by your providers. C difficile colitis is transmitted from person to person by contact with stool and then the stool gets into their mouth. It is important that you wash your hands vigorously with warm water and soap for at least 2 minutes after your you are exposed to your diarrhea. Also wiped down surfaces with bleach wipes and this will also remove C diff from door knobs, encounters and other surfaces. Wash all of your bed linens/cloths in hot soapy water. Follow-up with your doctor in 2 days. Please return to the emergency department if your symptoms get worse or if you develop any symptoms that are concerning to you. Prescriptions: New vancomycin 125 mg capsule 125 mg PO QID 10 Days Qty: 40 0RF Print Language: Senegalese
[2025-03-09 06:37] LABS: COVID-19 Test Negative (Negative); IDNOW Serial# 55D5AD1C; IDNOW Serial# 58CA691E; Influenza B2 Negative (Negative)
--- NOTE | 2025-03-09 07:24 | PC.NURSE ---
Pt in BR now for first time since arrival. Is steady on feet. Had small loose movement with juvencio blood. Small amount was formed. fluids continue to infuse.
[2025-03-09 07:45] VITALS: BP 117/54; PULSE 87; RESP 18; TEMP 36.4; O2SAT 96
--- NOTE | 2025-03-09 07:46 | PC.NURSE ---
Back from bathroom with steady gait. Denies abd pain. No other complaints.
[2025-03-09 09:19] LABS: CDiff Gene PCR POSITIVE (Negative)
[2025-03-09 09:21] LABS: CDIFF Internal ctrl Dots and bkg OK (V); CDiff Toxin Positive (Negative)
[2025-03-09 09:35] LABS: E. coli EAEC Not Detected (Not Detect.); E. coli EPEC Detected (Not Detect.); E. coli ETEC Not Detected (Not Detect.); E. coli STEC Not Detected (Not Detect.); Shigella sp./EIEC Not Detected (Not Detect.)
[2025-03-09 10:16] VITALS: BP 112/56; PULSE 75; RESP 18; TEMP 36.6; O2SAT 98
== END 2025-03-09 10:17 | disposition home or self-care (01) ==
PROVIDERS: Emergency Provider Emergency Medicine Emergency Medical Services; PCP Internal Medicine
DX: A04.72 Enterocolitis due to Clostridium difficile, not specified as recurrent (principal); E86.9 Volume depletion, unspecified; I10 Essential (primary) hypertension; E03.9 Hypothyroidism, unspecified; Z79.899 Other long term (current) drug therapy
CPT/HCPCS: 36415; 80053; 83690; 83735; 85025; 87324; 87493; 87502; 87507; 87635; 96360; 96361; 99284; J7120